=== PATIENT | male | born 1965 | race Caucasian/White ===

== ENCOUNTER 2022-04-14 12:59 | Emergency (ER) | payer BC ==
[2022-04-14] MEDS ORDERED: Lidocaine 1% with EPINEPHrine 1:100,000 20 ML MDV INJECT ONE (13:04)
[2022-04-14] MEDS ORDERED: Bacitracin Oint 1 GM U/D Packet TOP ONE (13:04)
[2022-04-14] MEDS ORDERED: Lidocaine 2% with EPINEPHrine 1:200,000 20 ML SDV INJECT ONE (13:07)
== END 2022-04-14 13:50 | disposition home or self-care (01) ==
LOC: DL.ED 12:59
DX: S80.851A Superficial foreign body, right lower leg, initial encounter (principal); W45.8XXA Other foreign body or object entering through skin, initial encounter
CPT/HCPCS: 10120; 99283-25